=== PATIENT | female | born 1990 | race Hispanic/Latino ===

== ENCOUNTER 2018-12-31 17:54 | Emergency (ER) | payer SELFPAY | END 2018-12-31 18:56 | disposition home or self-care (01) | LOC: EDH 17:54 | DX: G89.29 Other chronic pain (principal); M54.5 Low back pain; K21.9 Gastro-esophageal reflux disease without esophagitis; Z88.8 Allergy status to other drugs, medicaments and biological substances | CPT/HCPCS: 99281 ==